=== PATIENT | female | born 1960 | race Caucasian/White ===

== ENCOUNTER 2020-09-27 12:30 | Emergency (ER) | payer BC, SELFPAY ==
[2020-09-27 12:40] VITALS: BP 120/70; PULSE 78; RESP 20; TEMP 36.8; O2SAT 100; BMI 36.3
--- NOTE | 2020-09-27 13:24 | HMH.EDUTC ---
[facility] [place] Clinical Impression: Encounter for laboratory testing for COVID-19 virus Disposition: Home, Self-Care Condition on Discharge: Good Instructions: DI for COVID-19 (Suspected or Confirmed ), COVID-19 Viral Test, COVID-19: Testing and Tracing, Preventing the Spread of Coronavirus Discharge Instructions Additional Instructions: *Monitor Temp, Over the counter Motrin or Tylenol as directed/as needed Tylenol every 4 hours and Motrin every 6 hours (as long as your family doctor has told you that you can take it) for fever or pain. and straight to ER if unable to lower temp less than 101.0 after medication given Follow up IMMEDIATELY for new or worsening symptoms or no Noticeable improvement over the next 48-72 hours. 911 for difficulty breathing or swallowing You were tested for today for COVID19 your test result should be back in the next 24-48 hours, you may call to the [facility] to see if your test results are back in the next 48 hours [phone] [facility] hours are 9am-9pm You was given a handout with instructions for Self Quarantine and Self isolation for while you wait on test results and what to do if they are positive If you are positive the Health Dept will be contacting you also Referrals: Jozef Moe MD [Primary Care Provider] - As needed Forms: Work/School Release Time of Disposition: 13:25 Medical Decision Making - Aldo Inquiry Pt receiving controlled substance: No Aldo was queried for this patient: No Vital Signs: 09/27/20 12:40 Temperature 98.3 F Temperature Source Oral Pulse Rate [Right Brachial] 78 Respiratory Rate 20 Blood Pressure [Right Arm] 120/70 Blood Pressure Mean [Right Arm] 86 Blood Pressure Source [Right Arm] Automatic Cuff Blood Pressure Position [Right Arm] Sitting 02 Sat by Pulse Oximetry 100 Oxygen Delivery Method Room Air Orders (Tests/Meds): ORDERS Category Date Time Status Covid-19 Nasal PCR Sendout P&C Stat Lab 09/27/20 12:50 Received [facility] [place] - General Stated complaint: covid exposure Time Seen by Provider: 09/27/20 13:24 Mode of Arrival: Ambulatory Source of Information: Patient Limitations: No Limitations Description of Symptoms (Recalled from Triage Doc. by RN): PATIENT REQUESTING A COVID TEST FOR WORK D/T HAVING SYMPTOMS; DENIES SYMPTOMS HERSELF HEENT Symptoms (Recalled from RN notes): No Resp Symptoms (Recalled from RN notes): No Skin Symptoms (Recalled from RN notes): No MS Symptoms (Recalled from RN notes): No Functional Status (Recalled from RN notes): WNL - History of Present Illness Provider Complaint: Patient states that she works at [employer] and her had fever yesterday and having body aches and they require her to get tested before she can return to work States that she isnt having any symptoms - Related Data Allergies Allergy/AdvReac Type Severity Reaction Status Date / Time No Known Allergies Allergy Verified 09/27/20 13:07 - Worker's Comp Is this a Worker's Comp case?: No [facility] History - Hepatitis A Screen Drug use history?: No High risk sexual behaviors?: No History of sexually transmitted infection?: No Currently employed?: No Childcare worker?: No Do you have indoor plumbing?: Yes Do you have electricity?: Yes Attestation statement:: This patient has been screened for Hepatitis A risk factors. I have reviewed the patient's past medical history: Yes - Social History Alcohol Intake: never Occupational Status: other ROS Obtained: Yes All systems reviewed & no additional complaints, Yes Systems reviewed as appropriate & no additional complaints - Constitutional Constitutional: Reports system reviewed and no additional complaints, except as docu, Denies body ache, Denies chills, Denies fever(s), Denies headache(s) - ENT Ears, Nose, Mouth, and Throat: Reports system reviewed and no additional complaints, except as docu, Denies nasal congestion, Denies nasal discharge, Denies sore throat -
[2020-09-27 13:28] VITALS: BP 120/70; PULSE 78; RESP 20; TEMP 36.8; O2SAT 100
[2020-09-28 11:04] LABS: Covid-19 Nasal PCR Sendout P&C POSITIVE
--- NOTE | 2020-09-28 11:50 | PC.NURSE ---
PT NOTIFIED OF POSITIVE COVID RESULT
== END 2020-09-27 13:30 | disposition home or self-care (01) ==
PROVIDERS: Emergency Provider Nurse Practitioner; PCP Family Medicine
DX: U07.1 COVID-19 (principal)
CPT/HCPCS: 99201; U0004

== ENCOUNTER → 2021-09-13 15:00 | Outpatient (CLI) | payer BC, SELFPAY | PROVIDERS: PCP Family Medicine; Visit Provider Family Medicine | DX: G47.33 Obstructive sleep apnea (adult) (pediatric) (principal); G47.00 Insomnia, unspecified | CPT/HCPCS: G0399 ==

== ENCOUNTER → 2022-11-01 16:13 | Outpatient (CLI) | payer BC, SELFPAY ==
--- NOTE | 2022-11-01 16:13 | MM_ITS ---
PROCEDURE INFORMATION: Exam: MG Bilateral Screening 3D Mammography Exam date and time: 11/01/2022 4:11 PM Age: 62 years old Clinical indication: Screening mammogram TECHNIQUE: Imaging protocol: Bilateral Screening tomosynthesis and 2D mammography including computer-aided detection (CAD) when performed. COMPARISON: 1. MG DMSB DIG MAMM-SCREEN MUSA 10/12/2014 2:58 PM 2. MG DMSB DIG MAMM-SCREEN MUSA 09/29/2013 10:22 AM 3. MG DMSB DIGITAL MAMM-SCREEN BILATERAL 10/06/2011 8:39 AM 4. MG DMSB DIGITAL MAMM-SCREEN BILATERAL 07/13/2010 4:09 PM FINDINGS: MAMMOGRAPHY: Breast composition: There are scattered areas of fibroglandular density. Mass: 0.8 cm mass within the a outer anterior right breast, probably projecting at about 8-9 o'clock, should be further assessed with ultrasound to include the 7-10 o'clock radials. Architectural distortion: No new or suspicious architectural distortion. Calcifications: No new or suspicious calcifications are present Asymmetric density: No new or suspicious asymmetric density is present Skin thickening: None. Axillary adenopathy: None. IMPRESSION: 0.8 cm mass within the a outer anterior right breast, probably projecting at about 8-9 o'clock, should be further assessed with ultrasound to include the 7-10 o'clock radials. ASSESSMENT: BI-RADS category 0: Incomplete-need additional imaging evaluation
== END ==
PROVIDERS: PCP Family Medicine; Visit Provider Family Medicine
DX: Z12.31 Encounter for screening mammogram for malignant neoplasm of breast (principal)
CPT/HCPCS: 77063; 77067

== ENCOUNTER → 2022-12-05 12:38 | Outpatient (CLI) | payer BC, SELFPAY ==
--- NOTE | 2022-12-05 12:57 | US_ITS ---
PROCEDURE INFORMATION: Exam: US Right Breast, Complete Exam date and time: 12/05/2022 2:03 PM Age: 62 years old Clinical indication: Callback for additional assessment of 0.8 cm mass in the anterior the 8-9 o'clock right breast identified on screening mammogram 11/01/2022 TECHNIQUE: Imaging protocol: Complete ultrasound of all four quadrants of the right breast and the retroareolar regions, including ultrasound of the axilla when performed. COMPARISON: MG MM DIG SCREENING MAMM BI W/CAD 11/01/2022 4:11 PM FINDINGS: Breast: Ultrasound assessment of the entire right breast including 4 quadrants, retroareolar breast and axilla was performed. Anechoic obliquely oriented 0.9 x 0.4 x 0.7 cm structure along the 9 o'clock axis 3 cm from the right nipple has features of a minimally complicated septated cyst. No suspicious solid or cystic mass is present. No architectural distortion or shadowing is present. No axillary adenopathy is present. IMPRESSION: The finding of interest reflects a minimally complicated cyst. Recommend annual screening mammography unless otherwise clinically indicated. ASSESSMENT: BI-RADS category 2: Benign
== END ==
PROVIDERS: PCP Family Medicine; Visit Provider Nurse Practitioner
DX: R92.8 Other abnormal and inconclusive findings on diagnostic imaging of breast (principal)
CPT/HCPCS: 76641

== ENCOUNTER → 2023-02-06 23:25 | Outpatient (CLI) | payer MEDICARE, SELFPAY ==
[2023-02-06 18:37] LABS: Chloride 96 mmol/L (98-107); Potassium 4.2 mmoL/L (3.5-5.1); Sodium 135 mmol/L (136-145)
[2023-02-06 18:40] LABS: Alanine Aminotransferase 24 U/L (12-78); Albumin Level 4.1 g/dl (3.5-5.0); Albumin/Globulin Ratio 1.6 (1.1-1.8); Alkaline Phosphatase 60 U/L (38-126); Anion Gap 14.2 mEq/L (5-15); Aspartate Amino Transferase 34 U/L (14-36); Bilirubin,Total 0.9 mg/dl (0.2-1.3); Blood Urea Nitrogen 20 mg/dl (7-17); Calcium 9.5 mg/dl (8.4-10.2); Carbon Dioxide 29 mmol/L (22.0-30.0); Estimated Glomerular Filt Rate 84 ml/min (>60); GFR (African American) 102 ML/MIN (>60); Globulin 2.6 g/dL (1.3-3.2); Glucose 82 mg/dl (74-100); Total Protein,Serum 6.7 g/dl (6.3-8.2)
[2023-02-06 19:09] LABS: Thyroid Stimulating Hormone 1.18 uIU/mL (0.465-4.68)
[2023-02-06 19:28] LABS: Vitamin B12 741 pg/mL (239-931)
== END ==
PROVIDERS: PCP Family Medicine; Visit Provider Family Medicine
DX: Z68.36 Body mass index [BMI] 36.0-36.9, adult (principal); G47.00 Insomnia, unspecified; E66.9 Obesity, unspecified
CPT/HCPCS: 80053; 82607; 84443